=== PATIENT | female | born 1945 | race Caucasian/White ===

== ENCOUNTER 2024-09-24 18:53 | Emergency (ER) | payer OTHER, BC, MEDICARE ==
[2024-09-24] MEDS ORDERED: Sodium Chloride 0.9% 10 ML Syringe FLUSH PRN (19:41)
[2024-09-24] MEDS: HYDROmorphone 0.5 MG/0.5 ML Syringe IVPUSH ONE (19:56)
[2024-09-24] MEDS: Ondansetron 4 MG/2 ML SDV IVPUSH ONE (19:57)
[2024-09-24] MEDS: Take Home: Acetaminophen/HYDROcodone 325-10 MG, 5 Tab Pack PO ONE (20:57)
[2024-09-24] MEDS: Take Home: Ondansetron 4 MG Tab.DIS, 5 Tab Pack PO ONE (21:00)
== END 2024-09-24 21:15 | disposition home or self-care (01) ==
LOC: VM.ED 18:53
DX: S42.212A Unspecified displaced fracture of surgical neck of left humerus, initial encounter for closed fracture (principal); Z79.890 Hormone replacement therapy; Z79.899 Other long term (current) drug therapy; W01.198A Fall on same level from slipping, tripping and stumbling with subsequent striking against other object, initial encounter
CPT/HCPCS: 70450; 73030; 73060; 96374; 96375; 99283; 99284; A9270; J1171; J2405; Q0162